=== PATIENT | male | born 1955 ===

== ENCOUNTER 2017-04-14 23:33 | Emergency (ER) | payer BC ==
[2017-04-15] MEDS ORDERED: Sodium Chloride 0.9% 500 ML IV ONE (03:18)
[2017-04-15] MEDS ORDERED: Sodium Chloride 0.9% 1,000 ML ONE (03:29)
[2017-04-15 03:40] LABS: BASO % 0.1 % (0.0-2.0); EOS # 0.1 K/uL (0.0-0.7); EOS % 0.3 % (0.0-4.0); HEMATOCRIT 46.6 % (35.0-51.0); LYMPH # 0.6 K/uL (1.0-4.3); LYMPH % 3.3 % (20.0-40.0); MEAN CELL VOLUME 87.2 fL (80.0-94.0); MEAN CORPUSCULAR HEMOGLOBIN 28.2 pg (27.0-31.0); MEAN CORPUSCULAR HGB CONC 32.3 g/dL (33.0-37.0); MEAN PLATELET VOLUME 9.4 fL (7.2-11.7); MONO # 1.4 K/uL (0.0-0.8); MONO % 7.8 % (0.0-10.0); PLATELET COUNT 245 K/uL (130-400); RED CELL DISTRIBUTION WIDTH 13.7 % (11.5-14.5); WHITE BLOOD COUNT 18.3 K/uL (4.8-10.8)
[2017-04-15 03:46] LABS: CHLORIDE 103 mmol/L (98-107); POTASSIUM 3.2 mmol/L (3.6-5.2); SODIUM 141 mmol/L (132-148)
[2017-04-15 03:48] LABS: CARBON DIOXIDE 23 mmol/L (22-30); GFR AFRICAN-AMERICAN > 60
[2017-04-15 03:49] LABS: ALB/GLOB RATIO 1.6 (1.0-2.1); ALKALINE PHOSPHATASE 43 U/L (38-126); ALT/SGPT 41 U/L (21-72); AST/SGOT 22 U/L (17-59); BLOOD UREA NITROGEN 19 mg/dL (9-20); CALCIUM 8.8 mg/dl (8.6-10.4); GLUCOSE,RANDOM 171 mg/dL (75-110); TOTAL PROTEIN 7.2 g/dL (6.3-8.3)
[2017-04-15 03:58] LABS: NEUTROPHIL 86 % (50-75); TOTAL CELLS COUNTED 100
[2017-04-15] MEDS ORDERED: Potassium Chloride 20 mEq ER Tab PO STA (03:58)
[2017-04-15 04:23] VITALS: BP 125/78; PULSE 76; RESP 18; TEMP 98.3; O2SAT 95
--- NOTE | 2017-04-15 04:31 | C.PDOC ---
History Of Present Illness A 61 y/o male c/o several episodes of vomiting after eating ground beef at work with associated epigastric pain today. Pt notes the symptoms has subsided, but now feels nausea. Pt denies fever, chills, diarrhea, constipation, recent travel , or any other complaints. Time Seen by Provider: 04/15/17 03:02 Chief Complaint (Nursing): Abdominal Pain History Per: Patient History/Exam Limitations: no limitations Onset/Duration Of Symptoms: Hrs Current Symptoms Are (Timing): Still Present Context: Food Severity: Mild Location Of Pain/Discomfort: Epigastric Associated Symptoms: Nausea Exacerbating Factors: None Alleviating Factors: None Recent travel outside of the [place]: No Additional History Per: Patient Past Medical History Reviewed: Historical Data, Nursing Documentation, Vital Signs Vital Signs: Last Vital Signs Temp 98.3 F 04/15/17 04:00 Pulse 76 04/15/17 04:00 Resp 18 04/15/17 04:00 BP 125/78 04/15/17 04:00 Pulse Ox 95 04/16/17 04:07 - Medical History PMH: HTN, Hypercholesterolemia Surgical History: No Surg Hx Family History: States: Unknown Family Hx - Social History Hx Alcohol Use: No Hx Substance Use: No - Immunization History Hx Tetanus Toxoid Vaccination: No Hx Influenza Vaccination: Yes Hx Pneumococcal Vaccination: No Review Of Systems Constitutional: Negative for: Fever, Chills Gastrointestinal: Positive for: Nausea, Vomiting, Abdominal Pain (Epigastric ). Negative for: Diarrhea, Constipation Physical Exam - Physical Exam Appears: Non-toxic, No Acute Distress Skin: Warm, Dry Head: Atraumatic, Normacephalic Eye(s): bilateral: Normal Inspection Oral Mucosa: Moist Chest: Symmetrical Cardiovascular: Rhythm Regular, No Murmur Respiratory: Normal Breath Sounds, No Accessory Muscle Use, No Wheezing Gastrointestinal/Abdominal: Soft, Tenderness (Epigastric tenderness), No Guarding, No Rebound Neurological/Psych: Oriented x3, Normal Speech, Normal Cognition ED Course And Treatment - Laboratory Results Result Diagrams: 04/15/17 03:32 04/15/17 03:32 O2 Sat by Pulse Oximetry: 95 (RA) Pulse Ox Interpretation: Normal Progress Note: Impression: 61 y/o male c/o epigastric pain and several episodes of vomiting today. Plans: Pepcid, Zofran, IV fluids, reassess. On reevaluation ot feels better with the abdomen soft. Pt was discharged and instructed to visit PMD if symptoms continues to persist. Reassessment Condition: Improved (Pt denies pain had 1 loose BM in ER , VSS. Pt is requesting to leave) Disposition Counseled Patient/Family Regarding: Diagnosis, Need For Followup, Rx Given - Disposition Disposition: HOME/ ROUTINE Disposition Time: 04:26 Condition: STABLE Additional Instructions: Liquid to soft diet Avoid solid foods, greasy foods or fried foods Follow up with PMD Return to ER if worse Instructions: Gastroenteritis (ED) Forms: Work Excuse - Clinical Impression Clinical Impression: Gastroenteritis - Scribe Statement The provider has reviewed the documentation as recorded by the Scribe Lilliana murillo All medical record entries made by the Héctoribricardo were at my direction and personally dictated by me. I have reviewed the chart and agree that the record accurately reflects my personal performance of the history, physical exam, medical decision making, and the department course for this patient. I have also personally directed, reviewed, and agree with the discharge instructions and disposition.
[2017-04-15] MEDS ORDERED: Potassium Chloride 20 mEq ER Tab PO ONE (04:33)
== END 2017-04-15 04:56 | disposition home or self-care (01) ==
LOC: C.ER 23:33
DX: K52.9 Noninfective gastroenteritis and colitis, unspecified (principal)
CPT/HCPCS: 80053; 83690; 85025; 96374; 96375; 99283; J2405; J7040